=== PATIENT | male | born 1990 | race Caucasian/White ===

== ENCOUNTER 2017-09-24 12:13 | Emergency (ER) | payer MEDICAID, OTHER ==
[~2017-09-24] VITALS: Ht 185.4 cm; Wt 140.6 kg
[~2017-09-24 12:13] MED LIST: AFRIN NS; ANTI14DR2 OT; METH-360 PO
[2017-09-24] MEDS ORDERED: BENZ-16 PO (14:16)
[2017-09-24] MEDS ORDERED: AZIT250T PO (14:16)
[2017-09-24 14:38] VITALS: BP 149/93
== END 2017-09-24 14:39 | disposition home or self-care (01) ==
LOC: ER 12:14
DX: J20.9 Acute bronchitis, unspecified (principal); R10.84 Generalized abdominal pain; Z79.899 Other long term (current) drug therapy
CPT/HCPCS: 71045; 93005; 99284